=== PATIENT | female | born 1955 | race Caucasian/White ===

== ENCOUNTER 2018-12-22 06:34 | Day surgery (SDC) | payer BC, OTHER ==
[~2018-12-22] VITALS: Ht 167.6 cm; Wt 70.2 kg
[2018-12-22 07:19] VITALS: Ht 167.6 cm; Wt 70.2 kg
[2018-12-22 07:46] VITALS: BP 111/56; PULSE 57; RESP 14
[2018-12-22] MEDS ORDERED: [UNRECOGNIZED DRUG - REMARK] (08:05)
[2018-12-22] MEDS ORDERED: OMEGA 3 (08:05)
[2018-12-22] MEDS ORDERED: CALCIUM (08:05)
[2018-12-22] MEDS ORDERED: VITAMIN D3 (08:05)
[2018-12-22] MEDS ORDERED: MED FOR OSTEOPOROSIS (08:05)
[2018-12-22] MEDS ORDERED: MIDAZOLAM 1 MG/ML 2 ML INJ ONE ×2 (09:01)
[2018-12-22] MEDS ORDERED: FENTAnyl 50 MCG/ML VIAL ONE (09:02)
[2018-12-22 09:05] VITALS: BP 104/53; PULSE 51; RESP 14
[2018-12-22 09:20] VITALS: BP 105/56; PULSE 54; RESP 16
== END 2018-12-22 11:09 | disposition home or self-care (01) ==
LOC: GIL 06:34
PROVIDERS: ATTEND Internal Medicine Gastroenterology
DX: Z12.11 Encounter for screening for malignant neoplasm of colon (principal); K64.4 Residual hemorrhoidal skin tags
CPT/HCPCS: 45378; J2250; J3010; Z7610